=== PATIENT | male | born 1960 | race Caucasian/White ===

== ENCOUNTER → 2017-04-29 | Outpatient (CLI) | payer OTHER ==
[~2017-04-29] MED LIST: AMOXICILLIN500 M1 PO; AMOXICILLIN875 MG PO; AUGMENTIN875 MG PO; BP MED; COMBIVENT RESPIM4 GM IH; COZAAR50 MG PO; ENDOCET 5-3251 EACH PO; INDERAL20 MG PO; LISINOPRIL10 MG PO; LOSARTAN POTASS50 MG PO; MELOXICAM15 MG PO; MOBIC7.5 MG PO; MOTRIN800 MG PO; NORCO 7.5/321 TABLET PO; PEPCID20 MG PO; PREDNISONE20 MG PO; ULTRAM50 MG PO; VICODIN ES 7.51 EAC1 PO; ZOFRAN ODT4 MG PO
== END | disposition home or self-care (01) ==
LOC: RES 04-10 09:00
DX: Z02.71 Encounter for disability determination (principal)
CPT/HCPCS: 94060; 94760

== ENCOUNTER 2017-05-06 10:50 | Day surgery (SDC) | payer OTHER ==
[~2017-05-06] VITALS: Ht 185.4 cm; Wt 70.0 kg
== END 2017-05-06 12:10 | disposition home or self-care (01) ==
LOC: PAIN 10:50
DX: M46.82 Other specified inflammatory spondylopathies, cervical region (principal); M50.30 Other cervical disc degeneration, unspecified cervical region; M54.2 Cervicalgia; G89.29 Other chronic pain; F17.200 Nicotine dependence, unspecified, uncomplicated; I10 Essential (primary) hypertension; J44.9 Chronic obstructive pulmonary disease, unspecified; M43.22 Fusion of spine, cervical region; Z79.891 Long term (current) use of opiate analgesic
CPT/HCPCS: J1030; S0020

== ENCOUNTER 2017-06-27 09:18 | Day surgery (SDC) | payer OTHER ==
[~2017-06-27] VITALS: Ht 185.4 cm; Wt 70.0 kg
== END 2017-06-27 11:52 | disposition home or self-care (01) ==
LOC: PAIN 09:18 → SDC 10:00 → PAIN 10:00
DX: M47.812 Spondylosis without myelopathy or radiculopathy, cervical region (principal); M50.31 Other cervical disc degeneration, high cervical region; G89.29 Other chronic pain; M79.1 Myalgia; J44.9 Chronic obstructive pulmonary disease, unspecified; I10 Essential (primary) hypertension; F17.200 Nicotine dependence, unspecified, uncomplicated; Z79.891 Long term (current) use of opiate analgesic
CPT/HCPCS: J1030; J1885; J2250; S0020

== ENCOUNTER 2017-08-27 09:28 | Day surgery (SDC) | payer OTHER ==
[~2017-08-27] VITALS: Ht 185.4 cm; Wt 70.0 kg
[~2017-08-27 09:28] MED LIST changes: +FLEXERIL5 MG PO; +MOBIC15 MG PO; -MOBIC7.5 MG PO; +PERCOCET 10/1 TABLET PO
== END 2017-08-27 10:55 | disposition home or self-care (01) ==
LOC: PAIN 09:28
DX: M47.812 Spondylosis without myelopathy or radiculopathy, cervical region (principal); M50.31 Other cervical disc degeneration, high cervical region; M46.92 Unspecified inflammatory spondylopathy, cervical region; M79.1 Myalgia; G89.29 Other chronic pain; I10 Essential (primary) hypertension; J44.9 Chronic obstructive pulmonary disease, unspecified; F17.210 Nicotine dependence, cigarettes, uncomplicated; Z79.891 Long term (current) use of opiate analgesic
CPT/HCPCS: 93005; J1030; J2250; S0020